=== PATIENT | female | born 1945 | race Caucasian/White ===

== ENCOUNTER 2016-08-08 07:56 | Day surgery (SDC) | payer OTHER ==
[2016-08-02 15:27] VITALS: BMI 44.8
[2016-08-08] MEDS ORDERED: ACETAMINOPHEN 500 MG TABLET (FP) PO PRN (09:29)
[2016-08-08] MEDS ORDERED: POVIDONE-IODINE 5% OPHTHALMIC PREP 30 ML SOLUTION ONE (09:37)
[2016-08-08] MEDS ORDERED: BACITRACIN 3.5 GM OPTHALMIC OINT TUBE ONE (09:37)
[2016-08-08] MEDS ORDERED: LIDOCAINE 1%-EPI 1:100,000 30 ML MDV IJ ONE (09:38)
[2016-08-08] MEDS ORDERED: MIDAZOLAM HCL 2 MG/2 ML SINGLE DOSE VIAL ONE (10:08)
[2016-08-08] MEDS ORDERED: PROPOFOL 20 ML ONE ×3 (10:08)
[2016-08-08] MEDS ORDERED: LACTATED RINGERS SOLUTION 1,000 ML IV SCH (10:45)
[2016-08-08] MEDS ORDERED: ONDANSETRON 4 MG/2 ML VIAL IVPUSH PRN (11:31)
[2016-08-08] MEDS ORDERED: oxyCODONE HCL 5 MG TABLET PO PRN (11:31)
[2016-08-08 12:26] VITALS: BP 113/73; PULSE 56; TEMP 98.1
--- NOTE | 2016-08-08 16:06 | OP ---
DATE OF OPERATION: 08/08/2016 PREOPERATIVE DIAGNOSIS: Tumor, left anophthalmic socket. POSTOPERATIVE DIAGNOSIS: Tumor, left anophthalmic socket. PROCEDURE: 1. En bloc excision of tumor, left anophthalmic socket. 2. Conjunctivoplasty with closure of anterior socket/orbital defect. SURGEON: Yaritza Rand MD ANESTHESIA: Local with sedation. COMPLICATIONS: None. ESTIMATED BLOOD LOSS: 1 to 2 mL. OPERATIVE REPORT: The patient was brought to the operating room, placed in the operating room table, vital signs were monitored by Anesthesia. Time-out was performed. Intravenous sedation was administered. The left eye was confirmed the anatomic socket and a 50/50 mixture of 2% Xylocaine, 1:100,000 epinephrine and 0.5% Marcaine was injected subconjunctivally into the stroma of the anterior socket/orbit anterior to the implant, for a total of 1 to 2 mL. The patient was prepped and draped in usual sterile fashion, exposing both eyes. The right eye was closed at this time. The speculum was placed in the left eye and a perimeter excision of the lesion was carried out with a no-touch technique all around the lesion and below the lesion, with no remaining lesional tissue visible. A small amount of cautery was used and conjunctival flaps were mobilized superiorly and inferiorly down anterior to the implant, being careful not to expose it. This was carried into the superior and inferior orbital tissues, and then these flaps are advanced and closed with subcuticular 5-0 chromic suture and then the conjunctiva of the anterior pole of the anatomic socket was closed with interrupted 5-0 chromic suture as well. Antibiotic irrigation was used throughout the case. Bacitracin ointment was placed in the socket. The speculum was removed. The patient was taken to the recovery room in stable condition. YARITZA RAND M.D. ANTONIO/[id number]
== END 2016-08-08 12:15 | disposition home or self-care (01) ==
LOC: FASU 07:56
PROVIDERS: ATTEND Ophthalmology
PROC: 08U107Z Supplement of Left Eye with Autologous Tissue Substitute, Open Approach (ICD-10-PCS; 2016-08-08)
PROC: 0NBQ0ZZ Excision of Left Orbit, Open Approach (ICD-10-PCS; principal; 2016-08-08 10:18)
DX: Q11.1 Other anophthalmos (principal)
CPT/HCPCS: 88305-TC; 94760

== ENCOUNTER 2016-09-19 08:00 | Day surgery (SDC) | payer OTHER ==
[2016-09-15 10:34] VITALS: BMI 43.0
[2016-09-19] MEDS ORDERED: ACETAMINOPHEN 500 MG TABLET (FP) PO PRN (08:56)
[2016-09-19] MEDS ORDERED: TETRACAINE 0.5% OPHTH SOLN 2 ML BOTTLE ONE (08:57)
[2016-09-19] MEDS ORDERED: BACITRACIN 3.5 GM OPTHALMIC OINT TUBE ONE (08:57)
[2016-09-19] MEDS ORDERED: LIDOCAINE 1%-EPI 1:100,000 30 ML MDV IJ ONE (08:58)
[2016-09-19] MEDS ORDERED: BUPIVACAINE HCL/PF 0.5% (5MG/ML) 10 ML VIAL ONE (08:58)
[2016-09-19] MEDS ORDERED: MIDAZOLAM HCL 2 MG/2 ML SINGLE DOSE VIAL ONE (09:15)
[2016-09-19] MEDS ORDERED: PROPOFOL 20 ML ONE ×8 (09:26→11:20)
[2016-09-19] MEDS ORDERED: ceFAZolin SODIUM 1 GM VIAL ONE (09:36)
[2016-09-19] MEDS ORDERED: GLYCOPYRROLATE 0.2 MG/1 ML VIAL ONE (10:03)
[2016-09-19] MEDS ORDERED: THROMBIN (BOVINE) 5,000 UNIT VIAL TP ONE (10:05)
[2016-09-19] MEDS ORDERED: ONDANSETRON 4 MG/2 ML VIAL ONE (11:51)
[2016-09-19 12:31] VITALS: TEMP 97.7
[2016-09-19] MEDS ORDERED: LACTATED RINGERS SOLUTION 1,000 ML IV SCH (12:45)
[2016-09-19 13:16] VITALS: BP 141/85; PULSE 62
[2016-09-19] MEDS ORDERED: oxyCODONE HCL 5 MG TABLET PO PRN (13:38)
[2016-09-19] MEDS ORDERED: ONDANSETRON 4 MG/2 ML VIAL IVPUSH PRN (13:38)
--- NOTE | 2016-09-20 12:03 | OP ---
DATE OF OPERATION: 09/19/2016 PREOPERATIVE DIAGNOSIS: Contracted socket with difficulty wearing prosthesis and cicatricial entropion of the eyelids, left. POSTOPERATIVE DIAGNOSIS: Contracted socket with difficulty wearing prosthesis and cicatricial entropion of the eyelids, left. PROCEDURE: 1. Transconjunctival lateral, inferolateral, and superolateral orbitotomy. 2. Mucous membrane graft from the right upper lip to the superolateral, lateral, and inferolateral orbits. SURGEON: Yaritza Rand MD ANESTHESIA: LMA and nasal trumpet. COMPLICATONS: None. ESTIMATED BLOOD LOSS: 5-10 mL OPERATION REPORT: Patient was brought to the operating room and placed on the operating room table. Vital signs were monitored by Anesthesia. The patient was examined, time-out was performed, and then after intravenous sedation, a 50/50 mixture of 2% Xylocaine and 1:100,000 epinephrine and 0.5% Marcaine was injected subconjunctivally, lateral fornix, inferolateral fornix, superolateral fornix, and lateral canthus. Patient was prepped and draped in the usual sterile fashion exposing the entire face. The right eye was taped closed with Steri-Strips. Then 4-0 silk sutures were used as traction stitches in the lateral eyelids, and these were clamped with hemostats after being placed through the margin, and then incision was made through the inferolateral, lateral, and superolateral conjunctiva and spreading with a hemostat was carried out to create a new lateral forniceal space. Hemostasis was achieved with a [place] needle. Template was placed over the defect. Double gloves were used, and then a template was then placed on the right upper lip. This was marked with a marking pen. Afterwards, subcutaneous submucosal injection of 2% Xylocaine and 1:100,000 epinephrine for a total of 5-6 mL and injectable saline was used in the upper lip to create a platform. The graft was harvested by incising the perimeter and then dissecting it with Mary scissors, hemostasis was achieved with [place] needle, and then lip was packed with epinephrine-soaked gauze. Graft was placed in antibiotics. Following which, it was thinned of all submucosal tissue. It was then meticulously sutured into the newly-created lateral fornix with a plicating three double-arm 4-0 Prolene plicating sutures to the base of the graft inferiorly and centrally and superiorly, exiting through the skin at the lateral orbit and passed through a No. 8-Mexican red rubber bolster, and then the perimeter of the graft was tied with interrupted and running 5-0 chromic sutures throughout its perimeter creating a new forniceal space. A small silicone conformer was then placed into the socket behind the eyelids, which remained entropic, but created nice pressure against the lateral fornix, and following this, a tarsorrhaphy stitch was placed from the lower to the lid with a double-arm 4-0 silk passed through a No. 8-Mexican red rubber catheter through skin and szymanski line of the lower lid, szymanski line and skin of the upper lid, and through a second No. 8-Mexican red rubber catheter leaving approximately a 2-mm gap between the eyelids. Bacitracin ointment was placed around the conformer, behind the conformer, and on the sutures. A strip of Telfa, an eyepatch, and fluff were then taped over the left closed eyelid with Mastisol and paper tape, and the patient was taken to the recovery room. YARITZA RAND M.D. [id number]
== END 2016-09-19 13:35 | disposition home or self-care (01) ==
LOC: FASU 08:00
PROVIDERS: ATTEND Ophthalmology
PROC: 08RR07Z Replacement of Left Lower Eyelid with Autologous Tissue Substitute, Open Approach (ICD-10-PCS; principal; 2016-09-19 09:56)
DX: H02.59 Other disorders affecting eyelid function (principal); H02.015 Cicatricial entropion of left lower eyelid; H02.014 Cicatricial entropion of left upper eyelid
CPT/HCPCS: 94760

== ENCOUNTER 2018-01-11 18:28 | Emergency (ER) | payer OTHER ==
[2018-01-11 18:38] VITALS: BP 139/73; PULSE 65; TEMP 97.7; BMI 40.7
--- NOTE | 2018-01-11 19:34 | PDOC ---
Attending Attestation - Resident Resident Name: Luis Armando Etienne - ED Attending Attestation I have performed the following: I have examined & evaluated the patient, The case was reviewed & discussed with the resident, I agree w/resident's findings & plan - HPI HPI: 01/11/18 20:31 Pt comes with chronic back pain flare - Physicial Exam PE: 01/11/18 20:41 She has no rashes on her trunk or back. She has good rectal tone, as per resident exam. Pt has no saddle anesthesia. Pt has + straight leg pain @25degrees elevation. - Medical Decision Making 01/11/18 20:32 Pt received tylenol and motrin and she is demanding something stronger; we can give her oxycodone. 01/11/18 20:40 Pt is able to ambulate. <Fabiola Sears - Last Filed: 01/11/18 20:40> - HPI HPI: Patient is a 72 year old female with PMHx of HLD, Hypothyroidism, cardiomegaly , arthritic knees, and Spondylolisthesis, herniated lumbar discs, who presents with refractory lower back pain this today . Patient states that she takes tramadol & Gabapentin for her chronic pain. She states that she was going to her pain management doctor and receiving injections since march of last year bu stopped going as of September this year. Today her pain became unbearable and states that she took two of her Tramadol with no relief. She called Dr. Lezama who referred her here to the ED. Neurologist: Dr. Lezama <Molly Pemberton - Last Filed: 01/11/18 21:10>
[2018-01-11] MEDS ORDERED: IBUPROFEN 600 MG TABLET (FP) PO ONE ×2 (19:36→20:01)
[2018-01-11] MEDS ORDERED: ACETAMINOPHEN 500 MG TABLET (FP) PO ONE (19:38)
--- NOTE | 2018-01-11 19:40 | PDOC ---
History of Present Illness - General Chief Complaint: Back Pain Stated Complaint: PCP SENT/BACK PAIN History Source: Patient - History of Present Illness Initial Comments: 01/11/18 20:06 72f with pmh of CHF, arthritis and herniated lumbar disc presents to the ED for acute on chronic lower back pain, worse on the left side. The pain is 10/10 when she moves and radiates down her legs worse on her left leg. She woke up this morning, no pain, but a few hours later the pain flared up. She usually takes tramadol and gabapentin but without relief. Usually goes to Dr. Lezama who gives her "a shot" occasionally. 01/11/18 20:19 Past History - Past Medical History Allergies/Adverse Reactions: Allergies Allergy/AdvReac Type Severity Reaction Status Date / Time bacitracin Allergy Severe Swelling Verified 08/02/16 15:13 [From Neosporin ([id number])] bacitracin zinc Allergy Severe Swelling Verified 08/02/16 15:13 [From Neosporin ([id number])] neomycin sulfate Allergy Severe Swelling Verified 08/02/16 15:13 [From Neosporin ([id number])] polymyxin B Allergy Severe Swelling Verified 08/02/16 15:13 [From Neosporin ([id number])] Home Medications: Ambulatory Orders Carvedilol 25 mg PO BID 08/02/16 Cholecalciferol (Vitamin D3) [Vitamin D3] 2,000 unit PO Q2D 08/02/16 Levothyroxine [Synthroid -] 125 mcg PO DAILY 08/02/16 Pravastatin Sodium 80 mg PO HS 08/02/16 Gabapentin [Neurontin -] 100 mg PO Q8H 01/11/18 Losartan Potassium [Cozaar -] 50 mg PO DAILY 01/11/18 Meloxicam [Mobic] 15 mg PO DAILY 01/11/18 Ranolazine [Ranexa] 1,000 mg PO BID 01/11/18 Tramadol HCl 50 mg PO QID PRN 01/11/18 Varenicline Tartrate [Chantix] 1 each PO ASDIR 01/11/18 Anemia: No Asthma: No Cancer: No Cardiac Disorders: No CVA: No COPD: No CHF: No ("ENLARGED HEART,BEATS TOO FAST") Dementia: No Diabetes: Yes (off meds) GI Disorders: No Disorders: No HTN: No Hypercholesterolemia: No Liver Disease: No Seizures: No Thyroid Disease: No Other medical history: multiple herniated discs, nerve involvement - Surgical History Abdominal Surgery: No Appendectomy: No Cardiac Surgery: No Cholecystectomy: No Lung Surgery: No Neurologic Surgery: No Orthopedic Surgery: Yes (RIGHT KNEE SURGERY) - Suicide/Smoking/Psychosocial Hx Smoking History: Former smoker Have you smoked in the past 12 months: Yes Number of Cigarettes Smoked Daily: 20 Information on smoking cessation initiated: No Hx Alcohol Use: No Drug/Substance Use Hx: No Substance Use Type: None Hx Substance Use Treatment: No Review of Systems - Review of Systems Able to Perform ROS?: Yes Is the patient limited Armenian proficient: No Constitutional: No: Symptoms Reported HEENTM: No: Symptoms Reported Respiratory: No: Symptoms reported Cardiac (ROS): No: Symptoms Reported ABD/GI: No: Symptoms Reported : No: Symptoms Reported Musculoskeletal: Yes: See HPI. No: Neck Pain, Joint Stiffness Integumentary: No: Symptoms Reported Neurological: Yes: Symptoms reported, Tingling All Other Systems: Reviewed and Negative *Physical Exam - Vital Signs Last Vital Signs Temp Pulse Resp BP Pulse Ox 97.7 F 65 20 139/73 96 01/11/18 18:29 01/11/18 18:29 01/11/18 18:29 01/11/18 18:29 01/11/18 18:29 - Physical Exam General Appearance: Yes: Nourished, Appropriately Dressed. No: Apparent Distress HEENT: positive: EOMI, SELMA, Normal ENT Inspection Respiratory/Chest: positive: Lungs Clear, Normal Breath Sounds. negative: Chest Tender, Respiratory Distress Cardiovascular: positive: Regular Rhythm, Regular Rate, S1, S2 Gastrointestinal/Abdominal: positive: Normal Bowel Sounds, Flat, Soft. negative : Tender Musculoskeletal: positive: Normal Inspection. negative: CVA Tenderness Extremity: positive: Normal Capillary Refill, Normal Inspection, Normal Range of Motion Integumentary: positive: Normal Color, Dry, Warm Neurologic: positive: Fully Oriented, Alert, Normal Mood/Affect, Normal Response Medical Decision Making - Medical Decision Making 01/11/18 20:21 72f with acute on chronic lower back pain. 01/11/18 20:22 Will try treating with tylenol + motrin *DC/Admit/Observation/Transfer Diagnosis at time of Disposition: Lower back pain - Discharge Dispostion Disposition: HOME Condition at time of disposition: Improved Decision to Admit order: No - Referrals - Patient Instructions Printed Discharge Instructions: Exercise May Reduce Risk of Low Back Pain, DI for Back Pain With Sciatica, Magnet Therapies Appear Ineffective for Muscle Soreness and Back Pain, But Additional Instructions: Come back to the ER for any new, worsening or concerning symptom. Follow up with Dr. Lezama - Post Discharge Activity
[2018-01-11] MEDS ORDERED: ACETAMINOPHEN 325 MG TABLET (FP) ONE (20:00)
[2018-01-11] MEDS ORDERED: oxyCODONE HCL 5 MG TABLET PO ONE (20:31)
[2018-01-11] MEDS ORDERED: oxyCODONE HCL 5 MG TABLET ONE (20:33)
[2018-01-11 21:05] LABS: URINE APPEARANCE CLEAR; URINE BILIRUBIN NEGATIVE (<2.0 mg/dL); URINE COLOR STRAW; URINE GLUCOSE (UA) NEGATIVE (NEGATIVE); URINE KETONE NEGATIVE (NEGATIVE); URINE LEUK ESTERASE NEGATIVE (NEGATIVE); URINE NITRITE NEGATIVE (NEGATIVE); URINE PROTEIN NEGATIVE (NEGATIVE); URINE UROBILINOGEN NEGATIVE mg/dL (0.2-1.0)
[2018-01-11 21:13] LABS: EPI CELLS RARE /HPF (FEW); URINE BACTERIA RARE /hpf (NONE SEEN)
== END 2018-01-11 21:17 | disposition home or self-care (01) ==
LOC: JER 18:28
DX: M54.5 Low back pain (principal); G89.29 Other chronic pain
CPT/HCPCS: 81003; 81015; 99282-25

== ENCOUNTER 2023-03-28 04:00 | Day surgery (SDC) | payer OTHER ==
[2023-03-27 16:02] VITALS: BMI 43.9
[2023-03-28 12:18] VITALS: RESP 16
[2023-03-28 13:35] VITALS: BP 110/50; PULSE 63; TEMP 97.6
== END 2023-03-28 14:26 | disposition home or self-care (01) ==
LOC: JRADIR 04:00
PROVIDERS: ATTEND Orthopaedic Surgery
PROC: B01BYZZ Fluoroscopy of Spinal Cord using Other Contrast (ICD-10-PCS; principal; 2023-03-28)
PROC: 009Y3ZX Drainage of Lumbar Spinal Cord, Percutaneous Approach, Diagnostic (ICD-10-PCS; 2023-03-28)
DX: M54.50 Low back pain, unspecified (principal)
CPT/HCPCS: 62304; 72131-TC; 72265-TC-FY